=== PATIENT | male | born 1980 | race Hispanic/Latino ===

== ENCOUNTER 2020-09-04 13:01 | Observation (INO) | payer BC ==
[~2020-09-04] VITALS: Ht 167.6 cm; Wt 149.7 kg
[2020-09-04 13:30] LABS: BASOPHILS # (AUTO) 0.1 (0.0-0.1); BASOPHILS % 0.7 % (0.0-1.0); EOSINOPHILS % 0.4 % (0.0-6.0); HEMATOCRIT 43.6 % (38.2-49.6); HEMOGLOBIN 15.1 g/dL (14.0-18.0); LYMPHOCYTES # (AUTO) 2.4 (1.0-3.2); LYMPHOCYTES % 28.8 % (18.0-39.1); MEAN CORPUSCULAR HEMOGLOBIN 30.3 pg (28-32); MEAN CORPUSCULAR HGB CONC 34.6 g/dL (31-35); MEAN CORPUSCULAR VOLUME 87.4 fL (81-99); MONOCYTES # (AUTO) 0.6 (0.2-0.8); MONOCYTES % 7.3 % (4.4-11.3); NEUTROPHILS # (AUTO) 5.2 (2.1-6.9); NEUTROPHILS % 62.4 % (38.7-80.0); PLATELET COUNT 222 x10e3/uL (140-360); RED BLOOD COUNT 4.99 x10e6/uL (4.3-5.7); RED CELL DISTRIBUTION WIDTH 12.9 % (11.7-14.4)
[2020-09-04 14:00] LABS: ALANINE AMINOTRANSFERASE 54 IU/L (0-55); ALBUMIN/GLOBULIN RATIO 1.2 (0.8-2.0); ALKALINE PHOSPHATASE 69 IU/L (40-150); ANION GAP 12.8 mmol/L (8-16); BLOOD UREA NITROGEN 15 mg/dL (7-26); BUN/CREATININE RATIO 18 (6-25); CALCIUM 9.2 mg/dL (8.4-10.2); CARBON DIOXIDE 27 mmol/L (22-29); CHLORIDE 102 mmol/L (98-107); CREATINE KINASE 89 IU/L (30-200); CREATININE, SERUM 0.82 mg/dL (0.72-1.25); EST GLOMERULAR FILTRATION RATE > 60 ML/MIN (60-); GLUCOSE 100 mg/dL (74-118); POTASSIUM 3.8 mmol/L (3.5-5.1); SODIUM 138 mmol/L (136-145)
[2020-09-04] MEDS ORDERED: ASPIRIN 81 MG CHEW TAB PO ONE (14:15)
[2020-09-04 16:04] VITALS: BP 136/81
[2020-09-04 16:17] VITALS: BP 131/82
[2020-09-04 16:25] VITALS: BP 131/82
[2020-09-04] MEDS ORDERED: ATROVASTATIN (16:32)
[2020-09-04 20:00] VITALS: BP 136/83
[2020-09-04 20:05] VITALS: BP 136/83
[2020-09-04] MEDS ORDERED: ACETAMINOPHEN 325 MG TAB PO PRN (20:30)
[2020-09-04] MEDS ORDERED: ONDANSETRON HCL INJ 2MG/ML 2ML 2 MG/ML VIAL IV PRN (20:30)
[2020-09-04] MEDS ORDERED: MELATONIN 5 MG TABLET PO PRN (20:30)
[2020-09-04] MEDS ORDERED: ATORVASTATIN CA20 MG PO (22:18)
[2020-09-04] MEDS ORDERED: METFORMIN HCL500 MG PO (22:19)
[2020-09-04] MEDS ORDERED: EFFEXOR XR150 MG PO (22:20)
[2020-09-04] MEDS ORDERED: VENLAFAXINE HCL75 M2 PO (22:20)
[2020-09-04] MEDS ORDERED: HYDROXYZINE HCL25 MG PO (22:22)
[2020-09-04] MEDS ORDERED: LAMOTRIGINE100 MG PO (22:22)
[2020-09-04] MEDS ORDERED: TRAZODONE HCL100 MG PO (22:22)
[2020-09-04 22:41] LABS: CREATINE KINASE MB 1.1 ng/mL (0-5.0)
[2020-09-04] MEDS: LAMOTRIGINE 100 MG TAB PO SCH (23:14)
[2020-09-04] MEDS: ATORVASTATIN 20 MG TAB PO SCH (23:14)
[2020-09-04] MEDS: TRAZODONE HCL 50 MG TAB PO SCH (23:14)
[2020-09-05] VITALS (8 sets, daily range): BP systolic 125–140; BP diastolic 73–86
[2020-09-05 06:46] LABS: CHOL/HDL RATIO 4.9 (3.9-4.7)
[2020-09-05 07:34] LABS: CREATINE KINASE MB 1.2 ng/mL (0-5.0)
[2020-09-05] MEDS: ASPIRIN 81 MG CHEW TAB PO SCH (07:50)
[2020-09-05] MEDS ORDERED: DEXTROSE 50% SYRINGE 50 ML IV PRN (09:30)
[2020-09-05] MEDS: INSULIN LISPRO 100 UNIT/1 ML 3ML VIAL SQ SCH ×3 (11:30→20:59)
[2020-09-05 13:45] LABS: CREATINE KINASE MB 1.3 ng/mL (0-5.0)
[2020-09-05] MEDS: TRAZODONE HCL 50 MG TAB PO SCH (21:01)
[2020-09-05] MEDS: LAMOTRIGINE 100 MG TAB PO SCH (21:01)
[2020-09-05] MEDS: ATORVASTATIN 20 MG TAB PO SCH (21:01)
[2020-09-06] VITALS (8 sets, daily range): BP systolic 122–141; BP diastolic 73–90
[2020-09-06 06:39] LABS: BASOPHILS # (AUTO) 0.1 (0.0-0.1); BASOPHILS % 0.7 % (0.0-1.0); EOSINOPHILS # (AUTO) 0.1 (0.0-0.4); EOSINOPHILS % 0.6 % (0.0-6.0); HEMATOCRIT 44.1 % (38.2-49.6); HEMOGLOBIN 15.3 g/dL (14.0-18.0); LYMPHOCYTES # (AUTO) 2.2 (1.0-3.2); LYMPHOCYTES % 25.3 % (18.0-39.1); MEAN CORPUSCULAR HEMOGLOBIN 31.4 pg (28-32); MEAN CORPUSCULAR HGB CONC 34.7 g/dL (31-35); MEAN CORPUSCULAR VOLUME 90.6 fL (81-99); MONOCYTES # (AUTO) 0.6 (0.2-0.8); MONOCYTES % 7.4 % (4.4-11.3); NEUTROPHILS # (AUTO) 5.6 (2.1-6.9); NEUTROPHILS % 65.8 % (38.7-80.0); PLATELET COUNT 201 x10e3/uL (140-360); RED BLOOD COUNT 4.87 x10e6/uL (4.3-5.7); RED CELL DISTRIBUTION WIDTH 13.1 % (11.7-14.4)
[2020-09-06 07:08] LABS: ANION GAP 12.8 mmol/L (8-16); BLOOD UREA NITROGEN 12 mg/dL (7-26); BUN/CREATININE RATIO 15 (6-25); CALCIUM 8.3 mg/dL (8.4-10.2); CARBON DIOXIDE 26 mmol/L (22-29); CHLORIDE 103 mmol/L (98-107); EST GLOMERULAR FILTRATION RATE > 60 ML/MIN (60-); GLUCOSE 130 mg/dL (74-118); POTASSIUM 3.8 mmol/L (3.5-5.1); SODIUM 138 mmol/L (136-145)
[2020-09-06] MEDS: INSULIN LISPRO 100 UNIT/1 ML 3ML VIAL SQ SCH ×4 (07:30→20:38)
[2020-09-06] MEDS: ASPIRIN 81 MG CHEW TAB PO SCH (08:42)
[2020-09-06] MEDS: LORAZEPAM 0.5 MG TAB PO PRN (16:37)
[2020-09-06] MEDS: TRAZODONE HCL 50 MG TAB PO SCH (20:38)
[2020-09-06] MEDS: LAMOTRIGINE 100 MG TAB PO SCH (20:38)
[2020-09-06] MEDS: ATORVASTATIN 20 MG TAB PO SCH (20:38)
[2020-09-07 04:01] VITALS: BP 150/95
[2020-09-07] MEDS ORDERED: ASPIRIN CHEW81 MG PO (06:39)
[2020-09-07] MEDS: INSULIN LISPRO 100 UNIT/1 ML 3ML VIAL SQ SCH ×3 (07:08→16:30)
[2020-09-07 07:24] VITALS: BP 137/90
[2020-09-07 07:34] VITALS: BP 137/90
[2020-09-07] MEDS: ASPIRIN 81 MG CHEW TAB PO SCH (08:04)
[2020-09-07 11:47] VITALS: BP 132/96
[2020-09-07] MEDS: LORAZEPAM 0.5 MG TAB PO PRN (14:23)
[2020-09-07] MEDS ORDERED: IOPAMIDOL 370 MG/ML 200 ML INFUS..BTL INJ ONE (15:11)
[2020-09-07] MEDS ORDERED: SODIUM CHLORIDE 0.9% 1000ML 1,000 ML ONE (15:11)
[2020-09-07] MEDS ORDERED: HEPARIN SOD (PORCINE) 1000 UNIT/ML 30ML ONE (15:11)
[2020-09-07] MEDS ORDERED: HEPARIN SOD/SOD CHLORIDE 2,000 ML ONE (15:11)
[2020-09-07] MEDS ORDERED: LIDOCAINE HCL 2% LOCAL 20 ML VIAL ONE (15:11)
[2020-09-07] MEDS ORDERED: FENTANYL CITRATE/PF 100MCG/2 ML INJ ONE (15:16)
[2020-09-07] MEDS ORDERED: MIDAZOLAM HCL 2 MG/2 ML VIAL ONE ×2 (15:16→15:46)
[2020-09-07] MEDS ORDERED: ASPIRIN 81 MG CHEW TAB ONE (16:27)
== END 2020-09-07 20:10 | disposition home or self-care (01) ==
LOC: ER 13:10 → ERHOLD 14:37 → MED/SURG 14:47
PROVIDERS: ADMIT Internal Medicine; ATTEND Internal Medicine
DX: R07.2 Precordial pain (principal); R68.84 Jaw pain; E11.9 Type 2 diabetes mellitus without complications; E78.5 Hyperlipidemia, unspecified; Z83.3 Family history of diabetes mellitus; Z80.9 Family history of malignant neoplasm, unspecified; Z82.49 Family history of ischemic heart disease and other diseases of the circulatory system; E66.01 Morbid (severe) obesity due to excess calories; Z68.43 Body mass index [BMI] 50.0-59.9, adult; F41.9 Anxiety disorder, unspecified; F32.9 Major depressive disorder, single episode, unspecified; Z20.822 Contact with and (suspected) exposure to COVID-19; Z79.82 Long term (current) use of aspirin; Z79.84 Long term (current) use of oral hypoglycemic drugs
CPT/HCPCS: 36415 ×4; 71045; 76937; 80048; 80053; 80061; 82550 ×2; 82553 ×2; 82948 ×4; 83036; 83880; 84443; 84484 ×2; 85025 ×2; 93005; 93306; 93458; 99284; C1760; C1766; C1769 ×2; G0378 ×4; J1644; J2001; J2250; J3010; J7030; Q9967; U0002; 99152; 99153